=== PATIENT | female | born 1975 | race Caucasian/White ===

== ENCOUNTER → 2017-02-16 | Outpatient (CLI) | payer SELFPAY ==
[2017-02-16 16:14] LABS: CH 31.8; CHCM 35.7; HCT 42.9 % (34.0-46.0); HDW 2.75; HGB 14.9 gm/dL (11.4-16.0); MCH 31.1 pg (25.0-35.0); MCHC 34.8 g/dL (31.0-37.0); MCV 89.5 fL (80.0-100.0); Mean Platelet Volume 6.8; RBC 4.79 m/uL (3.80-5.40); RDW 14.3 % (11.5-15.5); WBC 13.3 k/uL (3.8-10.6)
[2017-02-16 16:30] LABS: Glucose 88 mg/dL (74-99); Non-African American GFR(MDRD) >60 (>60 ml/min/1.73 sqM)
--- NOTE | 2017-02-16 16:50 | US ---
EXAMINATION TYPE: US OB <= 14 wk fetus DATE OF EXAM: 02/16/2017 COMPARISON: NONE CLINICAL HISTORY: Z36 CONFIRM DATES. EXAM PERFORMED: Transabdominal (TA) EXAM MEASUREMENTS: GESTATIONAL AGE / DATING Physician Established: not established Dates by LMP: (11 weeks/1 days) EDC: 09/06/2017 Dates by First Scan: this is first scan Dates by Current Scan for: (12 weeks/3 days) EDC: 08/28/2017 MATERNAL ANATOMY Uterus: 12.4 x 5.3 x 6.7 cm Right Ovary: 2.5 x 2.4 x 2.0 cm Left Ovary: 2.9 x 3.4 x 2.4 cm Post CDS / Adnexa: wnl Presence of free fluid: none GESTATION / SURVEY CRL: 5.9 cm (12 weeks/3 days) Yolk Sac (normal less than 6mm): not seen Heart Rate: 165 bpm Rhythm: Normal IUP: Viable IUP Date of LMP: 11/30/2016 viable IUP that correlates with LMP IMPRESSION: Single viable intrauterine .
[2017-02-16 17:02] LABS: Hepatitis B Surface Ag Index 0.05
[2017-02-17 02:19] LABS: Treponemal Ab Non-Reactive (Non-Reactive)
[2017-02-17 04:24] LABS: Toxoplasma Antibody (IgG) <3.0 IU/mL (<7.2)
== END | disposition home or self-care (01) ==
LOC: RADUSWWP 15:25
PROVIDERS: ATTEND Obstetrics & Gynecology
DX: Z36 Encounter for antenatal screening of mother (principal); Z34.01 Encounter for supervision of normal first pregnancy, first trimester; Z3A.12 12 weeks gestation of pregnancy
CPT/HCPCS: 76801; 82565; 82947; 85027; 86762; 86777; 86778; 86780; 86850; 86900; 86901; 87340; 87390

== ENCOUNTER → 2017-03-22 | Outpatient (CLI) | payer OTHER ==
[2017-03-23 14:04] LABS: Alpha Fetoprotein 47.1 ng/mL; B-HCG (M.O.M.) 1.96; Gestational Age (days) 2; Human Chorionic Gonadotropin 42.6 IU/mL; Inhibin A (M.O.M.) 1.33; Interpretation SeeBelow; Maternal Age at EDD (Yrs) 40; Smoker No; Unconjugated Estriol (M.O.M.) 0.75
== END | disposition home or self-care (01) ==
LOC: LABWHC1 10:00
PROVIDERS: ATTEND Obstetrics & Gynecology
DX: Z34.02 Encounter for supervision of normal first pregnancy, second trimester (principal)
CPT/HCPCS: 36415; 82105; 82677; 84702; 86336

== ENCOUNTER 2017-07-15 11:15 | Outpatient (CLI) | payer BC ==
[2017-07-15] MEDS ORDERED: LABETALOL 5 MG/ML VIAL MDV IVP PRN ×3 (11:55)
[2017-07-15] MEDS ORDERED: hydrALAZINE HCL 20 MG/ML 1 ML VIAL IVP PRN (11:55)
[2017-07-15] MEDS ORDERED: LACTATED RINGERS 1,000 ML IV SCH (12:00)
[2017-07-15 12:20] LABS: Basophils % (A) 0 %; CH 30.8; CHCM 34.4; Eosinophils # (A) 0.2 k/uL (0-0.7); Eosinophils % (A) 1 %; HCT 39.9 % (34.0-46.0); HDW 3.19; HGB 13.2 gm/dL (11.4-16.0); Luc # (Auto) 0.18; Luc % (Auto) 1; Lymphocytes # (A) 2.3 k/uL (1.0-4.8); Lymphocytes % (A) 16 %; MCH 29.8 pg (25.0-35.0); MCHC 33.1 g/dL (31.0-37.0); MCV 90.2 fL (80.0-100.0); Mean Platelet Volume 7.8; Monocytes # (A) 0.7 k/uL (0-1.0); Monocytes % (A) 5 %; Neutrophils # (A) 10.7 k/uL (1.3-7.7); Neutrophils % (A) 76 %; RBC 4.43 m/uL (3.80-5.40); RDW 15.1 % (11.5-15.5); WBC 14.1 k/uL (3.8-10.6); WBC (Perox) 14.77
[2017-07-15 12:22] LABS: Appearance,Urine Clear (Clear); Bacteria,Urine Moderate /hpf; Bilirubin,Urine Negative (Negative); Glucose,Urine (UA) Negative (Negative); Ketones,Urine Negative (Negative); Leukocyte Esterase,Urine Moderate (Negative); Nitrite,Urine Negative (Negative); PH, Urine 6.5 (5.0-8.0); Particle Count 3468; Protein,Urine Negative (Negative); Specific Gravity,Urine 1.005 (1.001-1.035); Squamous Epithelial Cell,Urine 4 /hpf (0-4); UA Billing (MACRO vs. MICRO) MICRO; Urobilinogen,Urine <2.0 mg/dL (<2.0); WBC,Urine 3 /hpf (0-5)
[2017-07-15 12:31] VITALS: BP 186/102; PULSE 94; RESP 18; TEMP 98.5
[2017-07-15 12:39] LABS: Non-African American GFR(MDRD) >60 (>60 ml/min/1.73 sqM)
[2017-07-15 12:41] LABS: Blood Urea Nitrogen 9 mg/dL (7-17); Magnesium 1.6 mg/dL (1.6-2.3); Uric Acid 5.8 mg/dL (3.7-7.4)
[2017-07-15 12:42] LABS: ALT 44 U/L (9-52); AST 58 U/L (14-36); LDH 1103 U/L (313-618)
[2017-07-15] MEDS ORDERED: MAGNESIUM SULFATE-WATER PMX 4 GM in WATER FOR INJECTION 50 50ML.BAG IVPB ONE (12:49)
[2017-07-15] MEDS ORDERED: MAGNESIUM SULFATE-WATER PMX 20 GM in WATER FOR INJECTION 1 500ML.BAG IV SCH (13:00)
[2017-07-15] MEDS ORDERED: BETAMET ACET-BETAMETH SOD PHOS 6 MG/ML VIAL IM SCH (13:00)
--- NOTE | 2017-07-15 13:02 | P.HPOB ---
History of Present Illness H&P Date: 07/15/17 Chief Complaint: swelling and hypertension This patient is a pleasant 41-year-old 1 para 0 female estimated date of confinement 08/28/2017 estimated gestational age 33-4/7 weeks gestation who presented to the office today for a nonstress test due to advanced maternal age. care is per Dr. domingo and appears to be uncomplicated although she has had some swelling over the last month or so and some mild blood pressure elevations. Patient is advanced for maternal age however did decline testing other than the quad screen testing which was normal. Patient denies any history of hypertension previously. Patient's blood pressure here in labor and delivery is ranging from 160s to 190s over 110-118. She denies headache, blurry vision, or other symptomatology. Review of Systems Constitutional: Reports as per HPI Genitourinary: Reports Menstruation: Reports amenorrhea Past Medical History Past Medical History: No Reported History History of Any Multi-Drug Resistant Organisms: None Reported Past Surgical History: Cholecystectomy Past Anesthesia/Blood Transfusion Reactions: No Reported Reaction Past Psychological History: No Psychological Hx Reported Smoking Status: Never smoker Past Alcohol Use History: None Reported Past Drug Use History: None Reported Medications and Allergies Allergies Allergy/AdvReac Type Severity Reaction Status Date / Time amoxicillin [From Augmentin] AdvReac Diarrhea Verified 07/15/17 11:47 clavulanic acid AdvReac Diarrhea Verified 07/15/17 11:47 [From Augmentin] Exam - Vital Signs Vital signs: Vital Signs Temp Pulse Resp BP 07/15/17 11:48 98.5 F 94 18 186/102 07/15/17 11:45 79 Intake and Output 07/14/17 07/15/17 07/15/17 22:59 06:59 14:59 Other: Weight 57.606 kg Patient Weight 07/16/17 06:59 Weight 57.606 kg - OBG Physical Exam Abdomen: bowel sounds normal, no diffuse tenderness, no bruit present, no guarding noted, no hepatomegaly, no splenomegaly, no mass Vulva: both: normal Vagina: normal moisture, no discharge Uterus: enlarged Results Result Diagrams: 07/15/17 11:55 07/15/17 11:55 Abnormal Lab Results - Last 24 Hours (Table) 07/15/17 07/15/17 07/15/17 Range/Units 11:55 11:55 11:55 WBC 14.1 H (3.8-10.6) k/uL Neutrophils # 10.7 H (1.3-7.7) k/uL Creatinine 0.50 L (0.52-1.04) mg/dL AST 58 H (14-36) U/L Lactate Dehydrogenase 1103 H (313-618) U/L Ur Leukocyte Esterase Moderate H (Negative) Urine Bacteria Moderate H (None) /hpf Assessment and Plan Assessment: this is a pleasant 41-year-old 1 para 0 female 33-4/7 weeks gestation with severe gestational hypertension. Discussed with maternal- medicine and plan is to give her betamethasone, magnesium sulfate, control her blood pressure and transfer to [facility] for further care. (1) Gestational [-induced] hypertension without significant proteinuria , complicating childbirth Current Visit: Yes Status: Acute Code(s): O13.4 - GESTATNL HTN WITHOUT SIGNIFICANT PROTEIN, COMP CHILDBIRTH SNOMED Code(s): 59743664
--- NOTE | 2017-07-15 18:39 | P.DS ---
Providers Expected date of discharge: 07/15/17 Attending physician: Kayla Harmon - Discharge Diagnosis(es) (1) Gestational [-induced] hypertension without significant proteinuria , complicating childbirth Status: Acute Hospital Course: Please see dictated H&P for intimate details of this patient's admission. In brief summary this is a 41-year-old 1 para 0 female 33-4/7 weeks gestation who is admitted to labor and delivery from my office for evaluation of hypertension. Patient had significant blood pressure elevations here in labor and delivery immediately the A-Team is called and labetalol is given. Preeclampsia labs did show an elevated LDH and liver function test however did have normal platelets. Patient's heart tones were reactive. I contacted maternal- medicine and they agreed with transferring her due to gestational age and the severity of her illness. Patient was given Celestone and magnesium sulfate and subsequently transferred to [facility] labor and delivery. Patient was in stable condition at discharge and blood pressure had been brought down to a recommended range. Patient Condition at Discharge: Stable Plan - Discharge Summary Discharge Disposition: DC/TRNS INTERMEDIATE CARE FAC
== END 2017-07-15 14:10 ==
LOC: FBPOP 11:15
PROVIDERS: ATTEND Obstetrics & Gynecology
DX: O13.4 Gestational [pregnancy-induced] hypertension without significant proteinuria, complicating childbirth (principal); Z3A.33 33 weeks gestation of pregnancy; Z88.0 Allergy status to penicillin
CPT/HCPCS: 59025; 99215; 96361; 96365; 96366; 96372; 96375; 82565; 83615; 83735; 84450; 84460; 84520; 84550; 85025; 81001; J0702; J3475 ×2

== ENCOUNTER → 2017-08-31 | Outpatient (CLI) | payer BC | END | disposition home or self-care (01) | LOC: LABWHC1 16:45 | PROVIDERS: ATTEND Obstetrics & Gynecology | DX: N91.2 Amenorrhea, unspecified (principal) | CPT/HCPCS: 36415; 84702 ==

== ENCOUNTER → 2020-03-06 | Outpatient (CLI) | payer BC, OTHER | END | disposition home or self-care (01) | LOC: LABWHC1 15:11 | PROVIDERS: ATTEND Family Medicine | DX: Z20.828 Contact with and (suspected) exposure to other viral communicable diseases (principal) | CPT/HCPCS: U0003; C9803 ==

== ENCOUNTER 2023-11-10 10:56 | Emergency (ER) | payer OTHER ==
--- NOTE | 2023-11-10 11:08 | ED ---
General Adult HPI - General Source: patient, RN notes reviewed Mode of arrival: ambulatory Limitations: no limitations <Merna Stallworth - Last Filed: 11/10/23 11:07> <Sharifa Kennedy - Last Filed: 11/13/23 22:04> - General Stated complaint: Hypertension Time Seen by Provider: 11/10/23 11:07 - History of Present Illness Initial comments: Quick note: 48-year-old female presenting to the ER with a chief complaint of hypertension. Patient was seen at urgent care earlier today for a halo effect in her vision and was found to have evaded blood pressure.. She is not currently on any hypertensive medications. She states she woke up Wednesday m orning with a severe headache. Denies any chest pain, shortness of breath, dizziness, lightheadedness. (Merna Stallworth) 48-year-old female with past medical history of preeclampsia who presents emergency department for possible TIA. States that this morning she was at work when she had sudden onset of visual disturbance in her right eye. States that she saw a pixelated appearance to the right upper quadrant. She had no associated speech deficit, facial droop or weakness in her extremities. Symptoms lasted for approximately 20 minutes. She went to urgent care. Found to have extremely high blood pressure and therefore transferred to the hospital for further evaluation. Patient does admit to a history of preeclampsia. States that she was on high blood pressure medications for a few months after her however she was taken off as her blood pressure did eventually normalize. States she has not seen a primary care doctor in 2 years but has suspicion that her blood pressures have not been controlled. She denies any possibility of at this time. Denies any headache. Patient feels back to her baseline at this time. No other alleviating, precipitating or modifying factors (Sharifa Kennedy) - Related Data Home Medications Medication Instructions Recorded Confirmed No Known Home Medications 11/10/23 11/10/23 Allergies Allergy/AdvReac Type Severity Reaction Status Date / Time Sulfa (Sulfonamide Allergy Rash/Hives Verified 11/10/23 14:00 Antibiotics) amoxicillin [From Augmentin] AdvReac Diarrhea/Hi Verified 11/10/23 14:00 ves clavulanic acid AdvReac Diarrhea/Hi Verified 11/10/23 14:00 [From Augmentin] ves Review of Systems ROS Other: All systems not noted in ROS Statement are negative. <OsmardignaMerna - Last Filed: 11/10/23 11:07> ROS Other: All systems not noted in ROS Statement are negative. <MahinpennySharifa Ori - Last Filed: 11/13/23 22:04> ROS Statement: Those systems with pertinent positive or pertinent negative responses have been documented in the HPI. Past Medical History Past Medical History: No Reported History History of Any Multi-Drug Resistant Organisms: None Reported Past Surgical History: Cholecystectomy Past Anesthesia/Blood Transfusion Reactions: No Reported Reaction Past Psychological History: No Psychological Hx Reported Past Alcohol Use History: None Reported Past Drug Use History: None Reported <OsmardignaMerna - Last Filed: 11/10/23 11:07> General Exam <BasimMenra - Last Filed: 11/10/23 11:07> General appearance: alert, in no apparent distress Head exam: Present: atraumatic, normocephalic, normal inspection Eye exam: Present: normal appearance, PERRL, EOMI. Absent: scleral icterus, conjunctival injection, periorbital swelling ENT exam: Present: normal exam, mucous membranes moist Neck exam: Present: normal inspection. Absent: tenderness, meningismus, lymphadenopathy Respiratory exam: Present: normal lung sounds bilaterally. Absent: respiratory distress, wheezes, rales, rhonchi, stridor Cardiovascular Exam: Present: regular rate, normal rhythm, normal heart sounds. Absent: systolic murmur, diastolic murmur, rubs, gallop, clicks GI/Abdominal exam: Present: soft, normal bowel sounds. Absent: distended, tenderness, guarding, rebound, rigid Extremities exam: Present: normal inspection, full ROM, normal capillary refill. Absent: tenderness, pedal edema, joint swelling, calf tenderness Back exam: Present: normal inspection Neurological exam: Present: alert, oriented X3, CN II-XII intact Psychiatric exam: Present: normal affect, normal mood Skin exam: Present: warm, dry, intact, normal color. Absent: rash <MahinSharifa francis Ori - Last Filed: 11/13/23 22:04> - General Exam Comments Initial Comments: Visual Physical Exam Vital signs reviewed General: Well-appearing, nontoxic, no acute distress. Head: Normocephalic, atraumatic Eyes: PERRLA, EOMI ENT: Airway patent Chest: Nonlabored breathing Skin: No visual rash, normal skin tone Neuro: Alert and oriented 3 Musculoskeletal: No gross abnormalities (Merna Stallworth) Course Vital Signs 11/10/23 11/10/23 11/10/23 11:22 13:53 16:19 Temperature 98.7 F 98 F 98 F Pulse Rate 86 87 98 Respiratory 20 18 18 Rate Blood Pressure 176/125 143/90 130/86 O2 Sat by Pulse 96 96 98 Oximetry Medical Decision Making <Merna Stallworth - Last Filed: 11/10/23 11:07> - Lab Data Result diagrams: 11/10/23 12:57 11/10/23 12:46 <Sharifa Kennedy - Last Filed: 11/13/23 22:04> - Medical Decision Making I performed the quick note portion of this chart. Electronically signed by Merna Stallworth PA-C (Merna Stallworth) Was pt. sent in by a medical professional or institution (YAHAIRA Huizar, FING[employer]ER, urgent care, hospital, or half-way...) When possible be specific @ -Was sent in from urgent care Did you speak to anyone other than the patient for history (EMS, parent, family, police, friend...)? What history was obtained from this source @ -No Did you review nursing and triage notes (agree or disagree)? Why? @ -I reviewed and agree with nursing and triage notes Were old charts reviewed (outside hosp., previous admission, EMS record, old EKG, old radiological studies, urgent care reports/EKG's, half-way records)? Report findings @ -No old charts were reviewed Differential Diagnosis (chest pain, altered mental status, abdominal pain women, abdominal pain men, vaginal bleeding, weakness, fever, dyspnea, syncope, headac he, dizziness, GI bleed, back pain, seizure, CVA, palpatations, mental health, musculoskeletal)? @ -Differential CVA Ischemic stroke, hemorrhagic stroke, brain tumor, atypical migraine, Wernicke's encephalopathy, seizure, multiple sclerosis, meningitis, encephalitis, hypoglycemia, Guillain-Nugent, electrolytes disturbance, myasthenia gravis.... This is not meant to be an all-inclusive list EKG interpreted by me (3pts min.). @ -Yes and demonstrates sinus rhythm with a rate of 80. [place] interval 141. QRS 69. QTc of 390. No acute ST segment elevations or depressions. Minimal voltage X-rays interpreted by me (1pt min.). @ -Yes and demonstrates no acute process CT interpreted by me (1pt min.). @ -Yes and demonstrates no acute process U/S interpreted by me (1pt. min.). @ -None done What testing was considered but not performed or refused? (CT, X-rays, U/S, labs)? Why? @ -None What meds were considered but not given or refused? Why? @ -None Did you discuss the management of the patient with other professionals (professionals i.e. , PA, FING[employer]S ASSEMBLER, lab, RT, psych nurse, social security assessor, pediatric anesthesiologist, teacher, child support case officer, correctional case manager)? Give summary @ -No Was smoking cessation discussed for >3mins.? @ -No Was critical care preformed (if so, how long)? @ -No Were there social determinants of health that impacted care today? How? (Homelessness, low income, unemployed, alcoholism, drug addiction, transportation, low edu. Level, literacy, decrease access to med. care, senior care, rehab)? @ -No Was there de-escalation of care discussed even if they declined (Discuss DNR or withdrawal of care, Hospice)? DNR status @ -No What co-morbidities impacted this encounter? (DM, HTN, Smoking, COPD, CAD, Cancer, CVA, ARF, Chemo, Hep., AIDS, mental health diagnosis, sleep apnea, morbid obesity)? @ -None Was patient admitted / discharged? Hospital course, mention meds given and route, prescriptions, significant lab abnormalities, going to OR and other pertinent info. @ -Upon arrival patient was seen and evaluated in [place] [address]. Thorough history and physical exam was performed. IV access was established. Laboratory studies are conducted. NIH is assessed however patient has complete resolution of her symptoms at this time. CT, CTA are performed of the patient's head. Chest x- ray was performed. Patient remains asymptomatic throughout her stay. Blood pressure does improve on its own without intervention. Results are discussed with the patient. At this time patient will be discharged home. Recommended that she follow-up with primary care in regards to her symptoms. Keep a log of her blood pressures at home. Return to the emergency room for any new or worsening symptoms. Patient agreeable to the plan and was discharged home in stable condition Undiagnosed new problem with uncertain prognosis? @ -No Drug Therapy requiring intensive monitoring for toxicity (Heparin, Nitro, Insulin, Cardizem)? @ -Yes Were any procedures done? @ -No Diagnosis/symptom? @ -Acute visual disturbance - transient Acute, or Chronic, or Acute on Chronic? @ -Acute Uncomplicated (without systemic symptoms) or Complicated (systemic symptoms)? @ -Complicated Side effects of treatment? @ -No Exacerbation, Progression, or Severe Exacerbation? @ -No Poses a threat to life or bodily function? How? (Chest pain, USA, NH, pneumonia, PE, COPD, DKA, ARF, appy, cholecystitis, CVA, Diverticulitis, Homicidal, Suicidal, threat to staff... and all critical care pts) @ -No (Sharifa Kennedy) - Lab Data Lab Results 11/10/23 11/10/23 11/10/23 Range/Units 12:46 12:57 13:09 WBC 14.6 H (3.8-10.6) k/uL RBC 5.15 (3.80-5.40) m/uL Hgb 15.0 (11.4-16.0) gm/dL Hct 44.5 (34.0-46.0) % MCV 86.5 (80.0-100.0) fL MCH 29.1 (25.0-35.0) pg MCHC 33.7 (31.0-37.0) g/dL RDW 14.6 (11.5-15.5) % Plt Count 456 H (150-450) k/uL MPV 7.1 PT 10.4 (10.0-12.5) sec INR 0.9 (<1.2) APTT 26.7 (22.0-30.0) sec Sodium 138 (137-145) mmol/L Potassium 4.5 (3.5-5.1) mmol/L Chloride 106 (98-107) mmol/L Carbon Dioxide 26 (22-30) mmol/L Anion Gap 6 mmol/L BUN 8 (7-17) mg/dL Creatinine 0.49 L (0.52-1.04) mg/dL Est GFR (CKD-EPI)AfAm >90 (>60 ml/min/1.73 sqM) Est GFR (CKD-EPI)NonAf >90 (>60 ml/min/1.73 sqM) Glucose 93 (74-99) mg/dL Calcium 9.3 (8.4-10.2) mg/dL Total Bilirubin 0.8 (0.2-1.3) mg/dL AST 34 (14-36) U/L ALT 37 H (4-34) U/L Alkaline Phosphatase 98 (38-126) U/L Troponin I (0.000-0.034) ng/mL Total Protein 6.9 (6.3-8.2) g/dL Albumin 4.3 (3.5-5.0) g/dL Urine HCG, Qual (Not Detectd) 11/10/23 11/10/23 Range/Units 13:09 13:09 WBC (3.8-10.6) k/uL RBC (3.80-5.40) m/uL Hgb (11.4-16.0) gm/dL Hct (34.0-46.0) % MCV (80.0-100.0) fL MCH (25.0-35.0) pg MCHC (31.0-37.0) g/dL RDW (11.5-15.5) % Plt Count (150-450) k/uL MPV PT (10.0-12.5) sec INR (<1.2) APTT (22.0-30.0) sec Sodium (137-145) mmol/L Potassium (3.5-5.1) mmol/L Chloride (98-107) mmol/L Carbon Dioxide (22-30) mmol/L Anion Gap mmol/L BUN (7-17) mg/dL Creatinine (0.52-1.04) mg/dL Est GFR (CKD-EPI)AfAm (>60 ml/min/1.73 sqM) Est GFR (CKD-EPI)NonAf (>60 ml/min/1.73 sqM) Glucose (74-99) mg/dL Calcium (8.4-10.2) mg/dL Total Bilirubin (0.2-1.3) mg/dL AST (14-36) U/L ALT (4-34) U/L Alkaline Phosphatase (38-126) U/L Troponin I <0.012 (0.000-0.034) ng/mL Total Protein (6.3-8.2) g/dL Albumin (3.5-5.0) g/dL Urine HCG, Qual Not Detected (Not Detectd) Disposition <Merna Stallworth - Last Filed: 11/10/23 11:07> Is patient prescribed a controlled substance at d/c from ED?: No Time of Disposition: 16:08 <Sharifa Kennedy - Last Filed: 11/13/23 22:04> Clinical Impression: Visual disturbance, Chest mass, Hypertension Disposition: HOME SELF-CARE Condition: Stable Instructions (If sedation given, give patient instructions): Blurred Vision (ED) Additional Instructions: Please follow-up with the primary care doctor in regards to your symptoms. If you have recurrent symptoms, I commend that you return to the emergency department. Your CT of your neck did demonstrate an abnormality of a soft tissue mass in your chest. I do recommend a CT with and without contrast of your chest. The primary care doctor can order that. Should you have any a dditional worsening symptoms, return to the emergency department Referrals: Alonzo Coates MD [STAFF PHYSICIAN] - 1-2 days Tristin Victor MD [STAFF PHYSICIAN] - 1-2 days Anika Garzon MD [STAFF PHYSICIAN] - 1-2 days Sharifa Farrar DO [Doctor of Osteopathic Medicine] - 1-2 days Santos Gar MD [REFERRING] - 1-2 days
[2023-11-10 13:05] LABS: HCT 44.5 % (34.0-46.0); MCH 29.1 pg (25.0-35.0); MCHC 33.7 g/dL (31.0-37.0); MCV 86.5 fL (80.0-100.0); Mean Platelet Volume 7.1; Platelet Count 456 k/uL (150-450); RBC 5.15 m/uL (3.80-5.40); RDW 14.6 % (11.5-15.5); WBC 14.6 k/uL (3.8-10.6)
[2023-11-10 13:17] LABS: ALT 37 U/L (4-34); AST 34 U/L (14-36); African American GFR (CKD) >90 (>60 ml/min/1.73 sqM); Albumin 4.3 g/dL (3.5-5.0); Alkaline Phosphatase 98 U/L (38-126); Anion Gap 6 mmol/L; Blood Urea Nitrogen 8 mg/dL (7-17); Calcium 9.3 mg/dL (8.4-10.2); Carbon Dioxide 26 mmol/L (22-30); Chloride 106 mmol/L (98-107); Glucose 93 mg/dL (74-99); Non-African American GFR(CKD) >90 (>60 ml/min/1.73 sqM); Potassium 4.5 mmol/L (3.5-5.1); Sodium 138 mmol/L (137-145); Total Bilirubin 0.8 mg/dL (0.2-1.3); Total Protein 6.9 g/dL (6.3-8.2)
[2023-11-10 13:50] LABS: INR 0.9 (<1.2); Partial Thromboplastin Time 26.7 sec (22.0-30.0); Prothrombin Time 10.4 sec (10.0-12.5)
[2023-11-10 14:09] VITALS: RESP 18; TEMP 98
--- NOTE | 2023-11-10 14:17 | XR ---
EXAMINATION TYPE: XR chest 2V DATE OF EXAM: 11/10/2023 1:34 PM CLINICAL INDICATION:Female, 48 years old with history of altered mental status; [facility] COMPARISON: None TECHNIQUE: XR chest 2V Frontal and lateral views of the chest. FINDINGS: Lungs/Pleura: There is no evidence of pleural effusion, focal consolidation, or pneumothorax. Pulmonary vascularity: Unremarkable. Heart/mediastinum: Cardiomediastinal silhouette is unremarkable. Musculoskeletal: No acute osseous pathology. Other findings: None IMPRESSION: No acute cardiopulmonary disease/process.
--- NOTE | 2023-11-10 15:28 | CT ---
EXAMINATION TYPE: CT brain wo con DATE OF EXAM: 11/10/2023 COMPARISON: None HISTORY: 48-year-old female headache and high BP TECHNIQUE: Examination was done in axial plane without intravenous contrast. Coronal and sagittal r econstructions performed. CT DLP: 1130.6 mGycm Automated exposure control for dose reduction was used. FINDINGS: There is no evidence of acute intracranial hemorrhage, acute ischemic changes, mass, mass-effect, or extra-axial fluid collection. There is no effacement of cerebral sulci or basal subarachnoid cister ns. There is no hydrocephalus. There is no midline shift. Ralph-white matter distinction is preserv ed. 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 Paranasal sinuses and mastoid air cells are well pneumatized. Orbits and globes are intact. Slight le ftward nasal septal deviation. IMPRESSION: 1. 5 mm of cerebellar tonsillar ectopia, indeterminate between benign cerebellar tonsillar ectopia an d Chiari I malformation. No katina tonsillar beaking. Correlate for any chronic symptoms. 2. Otherwise, no acute intracranial abnormality seen.
--- NOTE | 2023-11-10 15:38 | CT ---
EXAMINATION TYPE: CT angio head neck DATE OF EXAM: 11/10/2023 COMPARISON: None HISTORY: 48-year-old female headache and high BP TECHNIQUE: Contiguous axial scanning of the head and neck performed with IV Contrast, patient injecte d with 65ml mL of Isovue 370. Coronal and sagittal reconstructions performed. 3-D reconstructions gen erated on a dedicated independent workstation. CT DLP: 993 mGycm Automated exposure control for dose reduction was used. FINDINGS: Neck: Partially visualized 2.2 cm anterior right paraspinal mass at the T6 level. Conventional arch vessel branching anatomy. Patent codominant bilateral vertebral arteries. The bilateral common and bilateral internal carotid arteries are widely patent. NASCET criteria is u tilized. Head: The bilateral vertebral and basilar arteries as well as the remainder of the posterior circulation is patent. The bilateral internal carotid arteries and remainder of the anterior circulation is patent. No aneurysmal change is seen. Dural venous sinuses are patent. IMPRESSION: NECK: 1. WIDELY PATENT VERTEBRAL AND CAROTID ARTERIES OF THE NECK. 2. PARTIALLY VISUALIZED 2.2 CM RIGHT ANTERIOR PARASPINAL MASS AT THE T6 LEVEL. THE ETIOLOGY IS UNCLEA R. THERE IS A VARIETY OF DIFFERENTIAL CONSIDERATIONS INCLUDING LYMPHANGIOMA, FOREGUT DUPLICATION CYST , NERVE SHEATH TUMORS, AND OTHER NEUROGENIC TUMOR SUCH PARAGANGLIOMA, PHEOCHROMOCYTOMA, OR NEUROBL ASTOMA. CONSIDER FURTHER EVALUATION WITH CT CHEST WITHOUT AND WITH CONTRAST TO DETERMINE THE DEGREE O F ENHANCEMENT. THIS CAN BE PERFORMED ON AN OUTPATIENT BASIS IF NOT SYMPTOMATIC. HEAD: 3. NO LARGE VESSEL INTRACRANIAL ARTERIAL OCCLUSION, SIGNIFICANT STENOSIS, OR ANEURYSMAL CHANGE IS SEE N.
[2023-11-10 16:51] VITALS: BP 130/86; PULSE 98
== END 2023-11-10 16:31 | disposition home or self-care (01) ==
LOC: EC 10:56
DX: H53.9 Unspecified visual disturbance (principal); I10 Essential (primary) hypertension; R22.2 Localized swelling, mass and lump, trunk; Z88.0 Allergy status to penicillin; Z88.1 Allergy status to other antibiotic agents; Z88.2 Allergy status to sulfonamides; Z90.49 Acquired absence of other specified parts of digestive tract
CPT/HCPCS: 36415; 93005; 80053; 84484; 85027; 85610; 85730; 81025; 71046; 70496; 70450; 70498; 99284; Q9967